=== PATIENT | female | born 1945 | race Two or more races ===

== ENCOUNTER 2024-08-05 10:41 | Inpatient (IN) | payer MEDICARE, OTHER ==
[~2024-08-05] VITALS: Ht 160 cm; Wt 68.9 kg
[2024-08-05] VITALS (9 sets, daily range): BP systolic 99–150; BP diastolic 68–99; TEMP 97.7; O2SAT 97–100
[2024-08-05] MEDS ORDERED: ALBU0.633 IH (11:17)
[2024-08-05] MEDS ORDERED: CALC-494 PO (11:17)
[2024-08-05] MEDS ORDERED: INSU100V42 SQ (11:17)
[2024-08-05] MEDS ORDERED: LEVO25TA7 PO (11:17)
[2024-08-05] MEDS ORDERED: ISOS30TA86 PO (11:17)
[2024-08-05] MEDS ORDERED: DABI150C PO (11:17)
[2024-08-05] MEDS ORDERED: CALC500T53 PO (11:17)
[2024-08-05] MEDS ORDERED: CHOL100062 PO (11:17)
[2024-08-05] MEDS ORDERED: CARV6.25 PO (11:17)
[2024-08-05] MEDS ORDERED: HYDR-4076 PO (11:17)
[2024-08-05] MEDS ORDERED: NA P133E RC (11:17)
[2024-08-05] MEDS ORDERED: LOSA50TA39 PO (11:17)
[2024-08-05] MEDS ORDERED: MIRT-91 PO (11:17)
[2024-08-05] MEDS ORDERED: IPRA0.2S49 IH (11:17)
[2024-08-05] MEDS ORDERED: PANT40TA2 PO (11:17)
[2024-08-05] MEDS ORDERED: BUSP5TAB3 PO (11:17)
[2024-08-05] MEDS ORDERED: GLUC1KIT IM (11:17)
[2024-08-05] MEDS ORDERED: FOLI0.8T41 PO (11:17)
[2024-08-05] MEDS ORDERED: LACT20SO4 PO (11:17)
[2024-08-05] MEDS ORDERED: ACET-868 PO (11:17)
[2024-08-05] MEDS ORDERED: ATOR40TA PO (11:17)
[2024-08-05] MEDS ORDERED: BUME1TAB34 PO (11:17)
[2024-08-05] MEDS ORDERED: TRAM50TA2 PO (11:17)
[2024-08-05] MEDS ORDERED: QUET25TA PO (11:17)
[2024-08-05] MEDS ORDERED: BISA10SU11 RC (11:17)
[2024-08-05] MEDS: CEFEPIME 1 GM in IV D5W 50 ML IV ONE (12:10)
[2024-08-05] MEDS: IV NS 0.9% 1,000 ML BAG IV ONE (12:10)
[2024-08-05 12:16] LABS: BASOPHILS # (AUTO) 0.2 K/uL (0.0-0.2); BASOPHILS % (AUTO) 2.6 % (0.0-2.0); EOSINOPHILS % (AUTO) 0.1 % (0.0-6.0); HEMATOCRIT 22 % (33-45); LACTIC ACID 0.9 mmol/L (0.4-2.0); LYMPHOCYTES # (AUTO) 0.2 K/uL (0.8-4.8); MEAN CORPUSCULAR HEMOGLOBIN 22 PG (26.0-33.0); MEAN CORPUSCULAR HGB CONC 31 g/dl (31.0-36.0); MEAN CORPUSCULAR VOLUME 73 fL (82-100); MONOCYTES # (AUTO) 0.1 K/uL (0.1-1.30); MONOCYTES % (AUTO) 1.2 % (2.0-12.0); NEUTROPHILS # (AUTO) 7.1 K/uL (1.8-8.9); NEUTROPHILS % (AUTO) 93.1 % (43.0-81.0); PLATELET COUNT (AUTO) 241 K/uL (150-450); RED BLOOD CELL COUNT(AUTO) 3.03 MIL/uL (4.0-5.2); RED CELL DISTRIBUTION WIDTH 22.8 % (11.5-15.0); WHITE BLOOD COUNT (AUTO) 7.6 K/uL (4.3-11.0)
[2024-08-05 12:18] LABS: HEMOGLOBIN 6.7 g/dL (11.5-14.8)
[2024-08-05 12:23] LABS: CALCIUM, SERUM 7.7 mg/dL (8.5-10.1); CARBON DIOXIDE 28 mmol/L (21-32); CHLORIDE 112 mmol/L (98-107); CREATININE 1.7 mg/dL (0.6-1.3); GLUCOSE 215 mg/dL (74-106); SODIUM SERUM 150 mmol/L (136-145); UREA NITROGEN, BLOOD 53 mg/dL (7-18)
[2024-08-05 12:27] LABS: ALANINE AMINOTRANSFERASE 25 U/L (12-78); ALBUMIN 1.7 g/dL (3.4-5.0); ALKALINE PHOSPHATASE 62 U/L (46-116); ASPARTATE AMINOTRANSFERASE 25 U/L (15-37); BILIRUBIN,TOTAL 0.3 mg/dL (0.2-1.0); TOTAL PROTEIN, SERUM 6.2 g/dL (6.4-8.2)
[2024-08-05 12:38] LABS: BILIRUBIN,DIRECT 0.1 mg/dL (0.0-0.2)
[2024-08-05] MEDS: VANCOMYCIN 1 GM in IV D5W 250 ML IV ONE (12:40)
[2024-08-05 12:46] LABS: INR 1.44 (0.91-1.10); PARTIAL THROMBOPLASTIN TIME 49.4 SEC (24.3-34.3); PROTHROMBIN TIME 14.9 SECS (9.2-11.1)
[2024-08-05 13:15] LABS: ACETAMINOPHEN <10 ug/ml (10-30); ALCOHOL, BLOOD < 3 mg/dL (0-10); SALICYLATE 1.7 mg/dL (2.8-20.0)
[2024-08-05] MEDS ORDERED: SOD FERRIC GLUC 125 MG in IV NS 0.9% 100 ML IV SCH (14:00)
[2024-08-05 14:50] LABS: ABG BASE EXCESS -1.5 mmol/L (-2.0-3.0); ABG OXYGEN SATURATION 98.8 % (94.0-98.0); ABG PCO2 83.6 mmHg (32.0-45.0); ABG PH 7.143 (7.350-7.450); ABG PO2 186.6 mmHg (83.0-108.0); ABG TOTAL HEMOGLOBIN 7.8 G/dL (12.0-16.0); COHb 0.3 % (0.5-1.5); O2Hb 97.5 % (94.0-97.0); SITE, ABG RIGHT RADIAL
[2024-08-05 14:57] LABS: LYMPHOCYTES % (MANUAL) 3 % (16-48); MONOCYTES % (MANUAL) 1 % (0-11.0); NEUTROPHILS % (MANUAL) 96 (42-76); PLATELET ESTIMATE ADEQUATE
[2024-08-05 14:58] LABS: ANISOCYTOSIS 1+; HYPOCHROMASIA 1+
[2024-08-05] MEDS: ROCURONIUM BROMIDE 50 MG/5 ML IV ONE (14:59)
[2024-08-05] MEDS: ETOMIDATE 2 MG/ML VIAL IV ONE (14:59)
[2024-08-05] MEDS ORDERED: IV NS 0.9% 250 ML IV ONE (15:24)
[2024-08-05] MEDS ORDERED: IOHEXOL-350 100 ML VIAL IV ONE (15:24)
[2024-08-05] MEDS ORDERED: ACETAMINOPHEN 325 MG TABLET PO PRN (16:00)
[2024-08-05] MEDS ORDERED: ONDANSETRON HCL/PF 4 MG/2 ML VIAL IVP PRN (16:00)
[2024-08-05] MEDS: FUROSEMIDE 40 MG/4 ML VIAL IV SCH (16:00)
[2024-08-05] MEDS: VANCOMYCIN 500 MG in IV D5W 100ml IV ONE (16:15)
[2024-08-05 16:30] LABS: ABG BASE EXCESS -3.4 mmol/L (-2.0-3.0); ABG OXYGEN SATURATION 99.7 % (94.0-98.0); ABG PCO2 36.7 mmHg (32.0-45.0); ABG PH 7.382 (7.350-7.450); ABG PO2 510.1 mmHg (83.0-108.0); ABG TOTAL HEMOGLOBIN 8.1 G/dL (12.0-16.0); COHb 0.3 % (0.5-1.5); MetHb 0.5 % (0.0-1.5); O2Hb 98.9 % (94.0-97.0); PEEP,BG 5 cm H2O; SITE, ABG RIGHT RADIAL; VT, ABG 450 mL
[2024-08-05 19:58] LABS: APPEARANCE,URINE CLEAR (CLEAR); BILIRUBIN,URINE NEGATIVE (NEGATIVE); BLOOD, URINE 2+ Ery/uL (NEGATIVE); COLOR,URINE YELLOW (YELLOW); KETONES,URINE NEGATIVE (NEGATIVE); LEUKOCYTE ESTERASE ,URINE NEGATIVE (NEGATIVE); NITRITE, URINE NEGATIVE (NEGATIVE); PROTEIN,URINE 1+ mg/dl (NEGATIVE); UGLUCOSE NEGATIVE (NEGATIVE); UROBILINOGEN,URINE 0.2 EU/dL (0.2)
[2024-08-05 20:39] LABS: ADD URINE CULTURE NO; BACTERIA,URINE Few /HPF (None Seen); MUCUS,URINE Few /LPF (None Seen); RBC,URINE 21-50 /HPF (0-2)
[2024-08-05] MEDS: PROPOFOL 100 ML IV PRN (20:40)
[2024-08-05] MEDS ORDERED: DEXTROSE 50%-WATER 50 ML DISP.SYRIN IV PRN (23:00)
[2024-08-06] VITALS (24 sets, daily range): BP systolic 96–156; BP diastolic 49–108; TEMP 97.6–97.9; O2SAT 99–100
[2024-08-06] MEDS: BLOOD SUGAR DIAGNOSTIC 1 EACH STRIP IN SCH
[2024-08-06] MEDS: INSULIN REGULAR, HUMAN 100 UNIT/ML 3 ML VIAL SQ PRN (01:26)
[2024-08-06] MEDS: PANTOPRAZOLE 40 MG VIAL IV SCH (04:04)
[2024-08-06 04:13] LABS: BASOPHILS % (AUTO) 0.4 % (0.0-2.0); EOSINOPHILS % (AUTO) 0.2 % (0.0-6.0); HEMATOCRIT 24 % (33-45); HEMOGLOBIN 7.8 g/dL (11.5-14.8); LYMPHOCYTES # (AUTO) 0.3 K/uL (0.8-4.8); LYMPHOCYTES % (AUTO) 3.4 % (20.0-44.0); MEAN CORPUSCULAR HEMOGLOBIN 23 PG (26.0-33.0); MEAN CORPUSCULAR HGB CONC 32 g/dl (31.0-36.0); MEAN CORPUSCULAR VOLUME 72 fL (82-100); MONOCYTES # (AUTO) 0.5 K/uL (0.1-1.30); MONOCYTES % (AUTO) 5.1 % (2.0-12.0); NEUTROPHILS # (AUTO) 8.6 K/uL (1.8-8.9); NEUTROPHILS % (AUTO) 90.9 % (43.0-81.0); PLATELET COUNT (AUTO) 203 K/uL (150-450); RED BLOOD CELL COUNT(AUTO) 3.37 MIL/uL (4.0-5.2); RED CELL DISTRIBUTION WIDTH 22.3 % (11.5-15.0); WHITE BLOOD COUNT (AUTO) 9.5 K/uL (4.3-11.0)
[2024-08-06 04:25] LABS: CALCIUM, SERUM 7.4 mg/dL (8.5-10.1); CARBON DIOXIDE 28 mmol/L (21-32); CHLORIDE 111 mmol/L (98-107); CREATININE 1.6 mg/dL (0.6-1.3); GLUCOSE 138 mg/dL (74-106); PHOSPHORUS 3.9 mg/dL (2.5-4.9); POTASSIUM 3.6 mmol/L (3.5-5.1); SODIUM SERUM 149 mmol/L (136-145); UREA NITROGEN, BLOOD 51 mg/dL (7-18)
[2024-08-06 04:29] LABS: MAGNESIUM 1.1 mg/dL (1.8-2.4)
[2024-08-06] MEDS: Magnesium 1GM/D5W 100ML PREMIX 100 ML IV SCH (05:50)
[2024-08-06] MEDS ORDERED: ETOMIDATE 2 MG/ML VIAL IV ONE (06:59)
[2024-08-06] MEDS: IV D5W 1,000 ML IV SCH (11:16)
[2024-08-06] MEDS: CEFEPIME 2 GM in IV D5W 100 ML IV SCH (12:09)
[2024-08-06] MEDS: FUROSEMIDE 40 MG/4 ML VIAL IV SCH (12:10)
[2024-08-06 12:16] LABS: CREATININE, URINE 27.9 MG/DL (30.0-125.0); URINE TOTAL PROTEIN 27.6 mg/dL (0-11.9)
[2024-08-06] MEDS: SOD FERRIC GLUC 125 MG in IV NS 0.9% 100 ML IV SCH (14:32)
[2024-08-06] MEDS: VANCOMYCIN 750 MG in IV D5W 250 ML IV SCH (16:10)
[2024-08-06] MEDS: GLUCERNA 1.2 1,000 ML BOTTLE NG PRN (16:40)
[2024-08-07] VITALS (24 sets, daily range): BP systolic 96–160; BP diastolic 55–108; TEMP 97.5–98.1; O2SAT 97–100
[2024-08-07 05:17] LABS: BASOPHILS % (AUTO) 0.3 % (0.0-2.0); EOSINOPHILS # (AUTO) 0.1 K/uL (0.0-0.7); EOSINOPHILS % (AUTO) 0.7 % (0.0-6.0); HEMATOCRIT 25 % (33-45); LYMPHOCYTES # (AUTO) 0.4 K/uL (0.8-4.8); LYMPHOCYTES % (AUTO) 4.1 % (20.0-44.0); MEAN CORPUSCULAR HEMOGLOBIN 23 PG (26.0-33.0); MEAN CORPUSCULAR HGB CONC 32 g/dl (31.0-36.0); MEAN CORPUSCULAR VOLUME 71 fL (82-100); MONOCYTES # (AUTO) 0.6 K/uL (0.1-1.30); MONOCYTES % (AUTO) 5.7 % (2.0-12.0); NEUTROPHILS # (AUTO) 8.7 K/uL (1.8-8.9); NEUTROPHILS % (AUTO) 89.2 % (43.0-81.0); PLATELET COUNT (AUTO) 200 K/uL (150-450); RED BLOOD CELL COUNT(AUTO) 3.47 MIL/uL (4.0-5.2); RED CELL DISTRIBUTION WIDTH 21.8 % (11.5-15.0); WHITE BLOOD COUNT (AUTO) 9.8 K/uL (4.3-11.0)
[2024-08-07 05:31] LABS: CREATINE KINASE, TOTAL 98 U/L (26-192)
[2024-08-07 06:11] LABS: ALANINE AMINOTRANSFERASE 22 U/L (12-78); ALKALINE PHOSPHATASE 64 U/L (46-116); ASPARTATE AMINOTRANSFERASE 23 U/L (15-37); BILIRUBIN,TOTAL 0.3 mg/dL (0.2-1.0); CALCIUM, SERUM 7.5 mg/dL (8.5-10.1); CARBON DIOXIDE 28 mmol/L (21-32); CHLORIDE 109 mmol/L (98-107); CREATININE 1.6 mg/dL (0.6-1.3); GLUCOSE 118 mg/dL (74-106); MAGNESIUM 1.4 mg/dL (1.8-2.4); PHOSPHORUS 3.3 mg/dL (2.5-4.9); POTASSIUM 3.3 mmol/L (3.5-5.1); SODIUM SERUM 145 mmol/L (136-145); TOTAL PROTEIN, SERUM 5.6 g/dL (6.4-8.2); UREA NITROGEN, BLOOD 45 mg/dL (7-18)
[2024-08-07 06:24] LABS: ALBUMIN 1.4 g/dL (3.4-5.0)
[2024-08-07] MEDS: PANTOPRAZOLE 40 MG/PACK PACK GT SCH (09:06)
[2024-08-07] MEDS: THERAHONEY GEL 1.5 OZ TUBE TP SCH (09:07)
[2024-08-07] MEDS: POTASSIUM CHLORIDE 20 MEQ POWDER PACKET GT ONE (09:23)
[2024-08-07] MEDS: MAGNESIUM OXIDE 400 MG TABLET GT ONE (09:23)
[2024-08-07] MEDS: IV D5W 1,000 ML IV PRN (10:00)
[2024-08-07] MEDS: ALBUTEROL HALF STRENGTH 1.25 MG/3 ML VIAL.NEB NEB SCH (10:00)
[2024-08-07] MEDS: IPRATROPIUM NEB FS 0.5 MG/2.5 ML AMPUL.NEB NEB SCH (10:00)
[2024-08-07 10:38] LABS: ABG BASE EXCESS 1.9 mmol/L (-2.0-3.0); ABG OXYGEN SATURATION 98.3 % (94.0-98.0); ABG PCO2 37.6 mmHg (32.0-45.0); ABG PH 7.455 (7.350-7.450); ABG PO2 128.8 mmHg (83.0-108.0); ABG TOTAL HEMOGLOBIN 9.3 G/dL (12.0-16.0); COHb 0.3 % (0.5-1.5); MetHb 0.2 % (0.0-1.5); O2Hb 97.8 % (94.0-97.0); PEEP,BG 5 cm H2O; SITE, ABG RIGHT RADIAL
[2024-08-07 15:48] LABS: NT-PRO BNP > 25000 pg/mL (0-125)
[2024-08-07] MEDS: hydrALAZINE HCL 10 MG TABLET PO SCH (18:30)
[2024-08-08] VITALS (35 sets, daily range): BP systolic 129–167; BP diastolic 60–108; TEMP 98–98.9; O2SAT 99–100
[2024-08-08 04:01] LABS: BASOPHILS # (AUTO) 0.2 K/uL (0.0-0.2); BASOPHILS % (AUTO) 1.2 % (0.0-2.0); EOSINOPHILS # (AUTO) 0.1 K/uL (0.0-0.7); EOSINOPHILS % (AUTO) 0.7 % (0.0-6.0); HEMATOCRIT 28 % (33-45); HEMOGLOBIN 8.8 g/dL (11.5-14.8); LYMPHOCYTES # (AUTO) 0.4 K/uL (0.8-4.8); LYMPHOCYTES % (AUTO) 3.2 % (20.0-44.0); MEAN CORPUSCULAR HEMOGLOBIN 23 PG (26.0-33.0); MEAN CORPUSCULAR HGB CONC 32 g/dl (31.0-36.0); MEAN CORPUSCULAR VOLUME 72 fL (82-100); MONOCYTES # (AUTO) 0.6 K/uL (0.1-1.30); MONOCYTES % (AUTO) 4.7 % (2.0-12.0); NEUTROPHILS # (AUTO) 10.9 K/uL (1.8-8.9); NEUTROPHILS % (AUTO) 90.2 % (43.0-81.0); PLATELET COUNT (AUTO) 220 K/uL (150-450); RED BLOOD CELL COUNT(AUTO) 3.87 MIL/uL (4.0-5.2); RED CELL DISTRIBUTION WIDTH 22.6 % (11.5-15.0); WHITE BLOOD COUNT (AUTO) 12.1 K/uL (4.3-11.0)
[2024-08-08 04:25] LABS: CALCIUM, SERUM 7.4 mg/dL (8.5-10.1); CREATININE 1.4 mg/dL (0.6-1.3); MAGNESIUM 1.5 mg/dL (1.8-2.4); PHOSPHORUS 3.2 mg/dL (2.5-4.9); POTASSIUM 3.5 mmol/L (3.5-5.1)
[2024-08-08] MEDS: VANCOMYCIN 1 GM in IV D5W 250ml IV SCH (06:07)
[2024-08-08 06:11] LABS: PTH, INTACT 104 pg/mL (15-65)
[2024-08-08] MEDS ORDERED: DC PROPOFOL WHEN EXTUBATED XX PRN (08:00)
[2024-08-08 08:46] LABS: ABG BASE EXCESS 1.2 mmol/L (-2.0-3.0); ABG OXYGEN SATURATION 97.7 % (94.0-98.0); ABG PCO2 36.6 mmHg (32.0-45.0); ABG PH 7.454 (7.350-7.450); ABG TOTAL HEMOGLOBIN 9.1 G/dL (12.0-16.0); COHb 0.3 % (0.5-1.5); MetHb 0.7 % (0.0-1.5); O2Hb 96.7 % (94.0-97.0); SITE, ABG RIGHT RADIAL
[2024-08-08] MEDS: hydrALAZINE HCL IV 20 MG VIAL IV PRN (14:39)
[2024-08-08] MEDS: MAGNESIUM OXIDE 400 MG TABLET GT ONE (17:22)
[2024-08-08] MEDS ORDERED: PHARMACY TO CHANGE PO MEDS TO GT/NG XX PRN (18:30)
[2024-08-08] MEDS: METOPROLOL TARTRATE 25 MG TABLET PO SCH (18:48)
[2024-08-08] MEDS ORDERED: hydrALAZINE HCL 10 MG TABLET GT SCH (19:12)
[2024-08-08] MEDS: hydrALAZINE HCL 10 MG TABLET GT SCH (21:02)
[2024-08-08] MEDS: METOPROLOL TARTRATE 25 MG TABLET GT SCH (21:03)
[2024-08-09] VITALS (46 sets, daily range): BP systolic 115–177; BP diastolic 63–121; TEMP 97.7–99.1; O2SAT 94–100
[2024-08-09 04:59] LABS: BASOPHILS % (AUTO) 0.4 % (0.0-2.0); EOSINOPHILS # (AUTO) 0.2 K/uL (0.0-0.7); EOSINOPHILS % (AUTO) 1.6 % (0.0-6.0); HEMATOCRIT 29 % (33-45); HEMOGLOBIN 9.1 g/dL (11.5-14.8); LYMPHOCYTES # (AUTO) 0.6 K/uL (0.8-4.8); LYMPHOCYTES % (AUTO) 5.1 % (20.0-44.0); MEAN CORPUSCULAR HEMOGLOBIN 22 PG (26.0-33.0); MEAN CORPUSCULAR HGB CONC 31 g/dl (31.0-36.0); MEAN CORPUSCULAR VOLUME 72 fL (82-100); MONOCYTES # (AUTO) 0.6 K/uL (0.1-1.30); NEUTROPHILS # (AUTO) 9.7 K/uL (1.8-8.9); NEUTROPHILS % (AUTO) 87.9 % (43.0-81.0); PLATELET COUNT (AUTO) 231 K/uL (150-450); RED BLOOD CELL COUNT(AUTO) 4.05 MIL/uL (4.0-5.2); RED CELL DISTRIBUTION WIDTH 22.2 % (11.5-15.0); WHITE BLOOD COUNT (AUTO) 11.1 K/uL (4.3-11.0)
[2024-08-09 05:22] LABS: CALCIUM, SERUM 7.4 mg/dL (8.5-10.1); CREATININE 1.1 mg/dL (0.6-1.3); POTASSIUM 3.1 mmol/L (3.5-5.1)
[2024-08-09] MEDS: POTASSIUM CL. PREMIX PERIPHER. 50 ML IV SCH (10:20)
[2024-08-09] MEDS: IV NS 0.9% 250 ML IV PRN (12:00)
[2024-08-09 12:07] LABS: *SPE A/G RATIO 0.6 (0.7-1.7); *SPE ALBUMIN 1.8 g/dL (2.9-4.4); *SPE ALPHA-1-GLOBULIN 0.3 g/dL (0.0-0.4); *SPE ALPHA-2-GLOBULIN 0.7 g/dL (0.4-1.0); *SPE GLOBULIN, TOTAL 2.9 g/dL (2.2-3.9); *SPE M-SPIKE Not Observed g/dL (Not Observed); *SPE PROTEIN TOTAL 4.7 g/dL (6.0-8.5)
[2024-08-09] MEDS: VANCOMYCIN 1 GM in IV D5W 250ml IV SCH (15:54)
[2024-08-10] VITALS (29 sets, daily range): BP systolic 100–171; BP diastolic 63–141; TEMP 97.5–99.1; O2SAT 95–100
[2024-08-10 05:12] LABS: BASOPHILS # (AUTO) 0.1 K/uL (0.0-0.2); BASOPHILS % (AUTO) 0.7 % (0.0-2.0); EOSINOPHILS # (AUTO) 0.3 K/uL (0.0-0.7); EOSINOPHILS % (AUTO) 2.2 % (0.0-6.0); HEMATOCRIT 28 % (33-45); HEMOGLOBIN 8.8 g/dL (11.5-14.8); LYMPHOCYTES # (AUTO) 0.6 K/uL (0.8-4.8); MEAN CORPUSCULAR HEMOGLOBIN 23 PG (26.0-33.0); MEAN CORPUSCULAR HGB CONC 31 g/dl (31.0-36.0); MEAN CORPUSCULAR VOLUME 72 fL (82-100); MONOCYTES # (AUTO) 0.8 K/uL (0.1-1.30); MONOCYTES % (AUTO) 6.6 % (2.0-12.0); NEUTROPHILS # (AUTO) 10.7 K/uL (1.8-8.9); NEUTROPHILS % (AUTO) 85.5 % (43.0-81.0); PLATELET COUNT (AUTO) 245 K/uL (150-450); RED BLOOD CELL COUNT(AUTO) 3.88 MIL/uL (4.0-5.2); RED CELL DISTRIBUTION WIDTH 21.8 % (11.5-15.0); WHITE BLOOD COUNT (AUTO) 12.5 K/uL (4.3-11.0)
[2024-08-10 05:16] LABS: ALANINE AMINOTRANSFERASE 15 U/L (12-78); ALBUMIN 1.7 g/dL (3.4-5.0); ALKALINE PHOSPHATASE 80 U/L (46-116); ASPARTATE AMINOTRANSFERASE 24 U/L (15-37); BILIRUBIN,TOTAL 0.3 mg/dL (0.2-1.0); CARBON DIOXIDE 33 mmol/L (21-32); CHLORIDE 103 mmol/L (98-107); CREATININE 1.1 mg/dL (0.6-1.3); GLUCOSE 148 mg/dL (74-106); PHOSPHORUS 2.8 mg/dL (2.5-4.9); POTASSIUM 3.5 mmol/L (3.5-5.1); SODIUM SERUM 140 mmol/L (136-145); TOTAL PROTEIN, SERUM 6.3 g/dL (6.4-8.2); UREA NITROGEN, BLOOD 41 mg/dL (7-18)
[2024-08-10 05:21] LABS: CALCIUM, SERUM 7.5 mg/dL (8.5-10.1)
[2024-08-10 05:37] LABS: MAGNESIUM 1.2 mg/dL (1.8-2.4)
[2024-08-10] MEDS: MAGNESIUM OXIDE 400 MG TABLET GT ONE (06:27)
[2024-08-10] MEDS: CEFEPIME 2 GM in IV D5W 100 ML IV SCH (08:39)
[2024-08-10] MEDS ORDERED: NITROFURANTOIN MACROCRYSTAL 50 MG CAPSULE NG SCH (12:00)
[2024-08-10] MEDS: ACETAMINOPHEN 650 MG/20.3 ML UDC PO PRN (21:05)
[2024-08-10] MEDS: hydrALAZINE HCL 10 MG TABLET ONE (21:30)
[2024-08-10] MEDS: MUPIROCIN OINT 2% 22 GM TUBE NS SCH (21:35)
[2024-08-11] VITALS (7 sets, daily range): BP systolic 45–151; BP diastolic 31–75; TEMP 97.9–99; O2SAT 93–100
[2024-08-11] MEDS: NOREPINEPHRINE 8 MG in IV D5W 242 ML IV PRN (05:55)
[2024-08-11] MEDS: NOREPINEPHRINE 8MG/250ML RTU 250 ML IV ONE (06:04)
[2024-08-11] MEDS ORDERED: EPINEPHRINE (1:10,000) SYRINGE 1 MG/10 ML DISP.SYRIN IVP ONE (07:44)
[2024-08-11] MEDS ORDERED: VANCOMYCIN 1 GM in IV D5W 250ml IV SCH (09:00)
[2024-08-12] MEDS ORDERED: VANCOMYCIN 1 GM in IV D5W 250ml IV SCH (02:00)
== END 2024-08-11 07:45 ==
LOC: ER 10:52 → ICU 18:40 → TELE 08-10 18:02 → ICU 08-11 05:45
PROVIDERS: ADMIT Nurse Practitioner Acute Care; ATTEND Nurse Practitioner Acute Care
PROC: 5A1945Z Respiratory Ventilation, 24-96 Consecutive Hours (ICD-10-PCS; principal; 2024-08-05)
PROC: 0BH17EZ Insertion of Endotracheal Airway into Trachea, Via Natural or Artificial Opening (ICD-10-PCS; 2024-08-05)
PROC: 02HV33Z Insertion of Infusion Device into Superior Vena Cava, Percutaneous Approach (ICD-10-PCS; 2024-08-05)
PROC: 30243N1 Transfusion of Nonautologous Red Blood Cells into Central Vein, Percutaneous Approach (ICD-10-PCS; 2024-08-05)
PROC: 5A1935Z Respiratory Ventilation, Less than 24 Consecutive Hours (ICD-10-PCS; 2024-08-11)
PROC: 0BH17EZ Insertion of Endotracheal Airway into Trachea, Via Natural or Artificial Opening (ICD-10-PCS; 2024-08-11)
PROC: 5A12012 Performance of Cardiac Output, Single, Manual (ICD-10-PCS; 2024-08-11)
DX: I13.0 Hypertensive heart and chronic kidney disease with heart failure and stage 1 through stage 4 chronic kidney disease, or unspecified chronic kidney disease (principal); I50.23 Acute on chronic systolic (congestive) heart failure; E43 Unspecified severe protein-calorie malnutrition; I21.A1 Myocardial infarction type 2; J96.02 Acute respiratory failure with hypercapnia; G93.41 Metabolic encephalopathy; N17.0 Acute kidney failure with tubular necrosis; D68.59 Other primary thrombophilia; E87.29 Other acidosis; N39.0 Urinary tract infection, site not specified; E87.0 Hyperosmolality and hypernatremia; J98.11 Atelectasis; I42.9 Cardiomyopathy, unspecified; L89.156 Pressure-induced deep tissue damage of sacral region; E88.09 Other disorders of plasma-protein metabolism, not elsewhere classified; E66.01 Morbid (severe) obesity due to excess calories; H70.93 Unspecified mastoiditis, bilateral; D50.9 Iron deficiency anemia, unspecified; B95.2 Enterococcus as the cause of diseases classified elsewhere; E11.22 Type 2 diabetes mellitus with diabetic chronic kidney disease; E78.5 Hyperlipidemia, unspecified; Z22.322 Carrier or suspected carrier of Methicillin resistant Staphylococcus aureus; E83.42 Hypomagnesemia; R13.10 Dysphagia, unspecified; E87.6 Hypokalemia; E86.0 Dehydration; E03.9 Hypothyroidism, unspecified; N18.9 Chronic kidney disease, unspecified; F09 Unspecified mental disorder due to known physiological condition; N27.1 Small kidney, bilateral
CPT/HCPCS: 31720; 36415; 36600; 70450-TC; 71045-TC; 76770-TC; 80048-TC; 80053-TC; 80076-TC; 80202-TC; 81001; 82550-TC; 82570-TC; 82803-TC; 82962-TC; 83605-TC; 83735-TC; 83880; 83970; 84100-TC; 84155; 84165; 84300-TC; 84443-TC; 84484-TC; 85025-TC; 85027-TC; 85378-TC; 85730-TC; 86850-TC; 87040-TC; 87081-TC; 87086-TC; 87186-TC; 92526; 92611-TC; 92950-TC; 93307-TC; 94002-TC; 94003-TC; 94760-TC; 94799-TC; 99082-TC; A4223; G0378; G0480; J0171; J0360; J0692; J1815; J1938; J2470; J2916; J3370; J3371; J3475; J3480; J3490; J7030; J7050; J7060; J7070; P9016; Q9967